=== PATIENT | female | born 1980 | race Caucasian/White ===

== ENCOUNTER 2017-12-06 20:59 | Emergency (ER) | payer OTHER ==
[~2017-12-06] VITALS: Ht 170.2 cm; Wt 124.0 kg
[~2017-12-06 20:59] MED LIST: ABREVA2 GM TP; AUGMENTIN875 MG PO; BACTRIM,SEPT1 TABLET PO; CLINDAMYCIN HC300 MG PO; CLONAZEPAM2 MG PO; DAILY VALUE1 EACH PO; FOCALIN5 MG PO; LORTAB 5-325 M1 EACH PO; MOTRIN600 MG PO; NAPROSYN500 MG PO; PERCOCET 5/31 TABLET PO; PREDNISONE20 MG PO; PRENATAL TABLE1 EAC3 PO; PROVENTIL HFA6.7 GM IH; PROZAC40 MG PO; TRAMADOL HCL50 MG PO; ZANTAC150 MG PO; ZOVIRAX800 M1 PO
[2017-12-06 21:35] LABS: HEMATOCRIT 42.4 % (36.0-46.0); HEMOGLOBIN 14.6 G/DL (11.9-15.5); MCH 27.2 PG (29.0-34.0); MCHC 34.4 G/DL (30.0-36.0); MCV 79.1 FL (83-99); RBC DIS.WIDTH-CV 13.2 % (11.8-14.6); RBC DIS.WIDTH-SD 36.8 % (39-53); RED BLOOD COUNT 5.36 M/uL (3.80-5.20); WHITE BLOOD COUNT 7.8 K/uL (4.1-10.2)
[2017-12-06 21:39] LABS: PLATELET COUNT 243 K/uL (156-360)
[2017-12-06 21:45] LABS: ALBUMIN 4.3 g/dL (3.2-4.8); CHLORIDE 100 mEq/L (99-109); SODIUM 135 mEq/L (136-147)
[2017-12-06 21:47] LABS: GLUCOSE 400 mg/dL (70-99); TOTAL PROTEIN 7.5 g/dL (6.4-8.3)
[2017-12-06 21:49] LABS: TOTAL BILIRUBIN 0.5 mg/dL (0.0-1.0)
[2017-12-06 21:51] LABS: ALKALINE PHOSPHATASE 68 IU/L (3-129); CREATININE 0.9 mg/dL (0.6-1.3); GFR ESTIMATE (CALCULATED) > 59 mL/min/
[2017-12-06 21:52] LABS: UREA NITROGEN (BUN) 11 mg/dL (9-23)
[2017-12-06 21:53] LABS: AST (GOT) 51 IU/L (2-34)
[2017-12-06 21:54] LABS: ALT (GPT) 71 IU/L (3-49)
[2017-12-06 22:00] LABS: QUANTITATIVE HCG < 4.0 MIU/ML
[2017-12-06 23:17] LABS: APPEARANCE CLOUDY ((CLEAR)); BILIRUBIN NEGATIVE; BLOOD SMALL; COLOR YELLOW ((YELLOW)); GLUCOSE (STRIP) >=500; KETONES 5; LEUKOCYTES LARGE; NITRITE NEGATIVE; PROTEIN (STRIP) NEGATIVE; SPECIFIC GRAVITY 1.033 (1.000-1.030); UROBILINOGEN 0.2 MG/DL (0.2-1.0)
[2017-12-06 23:34] LABS: RED BLOOD CELLS 0-5 /HPF (0-5); WHITE BLOOD CELLS 15-20 /HPF (0-5)
[2017-12-06 23:35] LABS: AMORPHOUS URATES CRYSTALS 2+; BACTERIA 3+ /HPF; EPITHELIAL CELLS 2+ /HPF; MUCUS 2+ /LPF; UCUL ADDED? YES
[2017-12-07 00:02] LABS: AMYLASE 30 IU/L (1-118)
[2017-12-07 00:10] LABS: LIPASE 18 U/L (1.0-51.0)
[2017-12-07] MEDS ORDERED: NORCO 5/3251 TABLET PO (00:27)
[2017-12-07] MEDS ORDERED: DIFLUCAN150 MG PO (00:27)
[2017-12-07] MEDS ORDERED: AUGMENTIN875 MG PO (00:28)
[2017-12-07] MEDS ORDERED: GLUCOTROL5 MG PO (00:34)
[2017-12-07 00:46] VITALS: BP 130/84
== END 2017-12-07 01:08 | disposition home or self-care (01) ==
LOC: EME 20:59
PROVIDERS: Physician Assistant
DX: K80.20 Calculus of gallbladder without cholecystitis without obstruction (principal); N39.0 Urinary tract infection, site not specified; E11.65 Type 2 diabetes mellitus with hyperglycemia; Z91.14 Patient's other noncompliance with medication regimen; K76.0 Fatty (change of) liver, not elsewhere classified; Z87.891 Personal history of nicotine dependence
CPT/HCPCS: 76705; 80053; 81003; 82150; 82948; 83690; 84702; 85027; 87086; 99281; 99285; J0696; J7030